=== PATIENT | female | born 1935 | race Caucasian/White ===

== ENCOUNTER 2017-08-28 20:59 | Inpatient (IN) | payer MEDICARE, BC ==
[~2017-08-28] VITALS: Ht 152.4 cm; Wt 54.7 kg
[2017-08-28] MEDS ORDERED: TYLENOL 8 HR PO (21:25)
[2017-08-28] MEDS ORDERED: LASIX 20MG TABL20 MG PO (21:26)
[2017-08-28] MEDS ORDERED: SYNTHROID0.2 MG/TAB PO (21:26)
[2017-08-28] MEDS ORDERED: ASPIRIN 32325 MG/TAB PO (21:27)
[2017-08-28] MEDS ORDERED: LIPITOR 80MG80 MG PO (21:27)
[2017-08-28] MEDS ORDERED: K-DUR20 MEQ PO (21:27)
[2017-08-28] MEDS ORDERED: CENTRUM SILVER1 TA2 PO (21:27)
[2017-08-28] MEDS ORDERED: COZAAR100 MG PO (21:28)
[2017-08-28] MEDS ORDERED: ZETIA 10MG TAB10 MG PO (21:28)
[2017-08-28] MEDS ORDERED: EPA FISH OIL1 SGL PO (21:29)
[2017-08-28] MEDS ORDERED: ZOLOFT 100MG100 MG PO (21:29)
[2017-08-28] MEDS ORDERED: PRILOSEC 20MG20 MG PO (21:29)
[2017-08-28 22:29] LABS: COLLECTION METHOD CATHETER
[2017-08-28 22:34] LABS: MUCOUS Present /lpf; PH 5 (5-8); SQUAMOUS EPITHELIAL 0-2 /hpf; URINE APPEARANCE Clear; URINE BACTERIA None Seen /hpf; URINE BILIRUBIN Negative (NEGATIVE); URINE BLOOD Negative (NEGATIVE); URINE COLOR Yellow; URINE GLUCOSE Negative (NEGATIVE); URINE KETONE Negative (NEGATIVE); URINE LEUKOCYTE ESTERASE Negative (NEGATIVE); URINE NITRATE Negative (NEGATIVE); URINE PROTEIN(semi-quant) Negative (NEGATIVE); URINE RBC 0-2 /hpf
[2017-08-28 23:05] LABS: BASO # 0.1 (0.0-0.2); BASO % 0.5 % (0.0-2.0); EOS # 0.4 (0.0-0.7); EOS % 2.4 % (0-4.0); GRAN # 13.5 (1.4-6.5); HEMATOCRIT 42.5 % (37.0-47.0); LYMPH # 2.5 (1.2-3.4); LYMPH % 14.3 % (20.0-51.0); MEAN CELL VOLUME 95 fl (80.0-100.0); MEAN CORPUSCULAR HEMOGLOBIN 31 pg (27.0-31.0); MEAN CORPUSCULAR HGB CONC 33 g/dl (33.0-37.0); MEAN PLATELET VOLUME 10.9 fl (7.4-10.4); MONO # 1.1 (0.1-0.6); MONO % 6.1 % (1.7-9.3); PLATELET COUNT 281 K/mm3 (130-400); RED BLOOD COUNT 4.49 M/mm3 (4.10-5.30); REDCELL DISTRIBUTION WIDTH-CV 14.3 % (11.5-14.5)
[2017-08-28 23:07] LABS: INR 0.9 (0.8-3.0); PROTHROMBIN TIME 10.3 SECONDS (9.7-12.8)
[2017-08-28 23:10] LABS: ALBUMIN 3.5 gm/dL (3.5-5.0); BILIRUBIN,TOTAL 0.6 mg/dL (0.0-1.0); CALCIUM 8.5 mg/dL (8.4-10.2); CREATININE, serum 1.08 mg/dL (0.52-1.25); POTASSIUM 4.2 mmol/L (3.4-5.0); TOTAL PROTEIN 7.4 gm/dL (6.4-8.2)
[2017-08-28 23:24] VITALS: BP 120/37; PULSE 105; TEMP 97.4
[2017-08-29] VITALS (11 sets, daily range): BP systolic 98–115; BP diastolic 41–87; PULSE 66–106; TEMP 97.5–98.4
[2017-08-29 06:52] LABS: BASO # 0.1 (0.0-0.2); BASO % 0.5 % (0.0-2.0); EOS # 0.1 (0.0-0.7); EOS % 0.8 % (0-4.0); GRAN # 10.4 (1.4-6.5); GRAN % 76.2 % (42.2-75.2); HEMATOCRIT 40.8 % (37.0-47.0); HEMOGLOBIN 12.9 g/dl (12.5-16.0); LYMPH # 2.1 (1.2-3.4); LYMPH % 15.7 % (20.0-51.0); MEAN CELL VOLUME 99 fl (80.0-100.0); MEAN CORPUSCULAR HEMOGLOBIN 31 pg (27.0-31.0); MEAN CORPUSCULAR HGB CONC 32 g/dl (33.0-37.0); MEAN PLATELET VOLUME 10.4 fl (7.4-10.4); MONO # 0.9 (0.1-0.6); MONO % 6.5 % (1.7-9.3); PLATELET COUNT 274 K/mm3 (130-400); RED BLOOD COUNT 4.12 M/mm3 (4.10-5.30); REDCELL DISTRIBUTION WIDTH-CV 14.3 % (11.5-14.5)
[2017-08-29 07:07] LABS: ALBUMIN 3.3 gm/dL (3.5-5.0); BILIRUBIN,TOTAL 0.4 mg/dL (0.0-1.0); CALCIUM 8.1 mg/dL (8.4-10.2); CREATININE, serum 1.23 mg/dL (0.52-1.25); POTASSIUM 4.8 mmol/L (3.4-5.0); TOTAL PROTEIN 6.8 gm/dL (6.4-8.2)
[2017-08-29] MEDS ORDERED: SYNTHROID0.075 MG/T PO (16:45)
[2017-08-30 01:51] VITALS: BP 103/47; PULSE 110; TEMP 97.7
[2017-08-30 05:28] VITALS: BP 97/47; PULSE 111; TEMP 98.3
[2017-08-30 06:34] LABS: BASO % 0.1 % (0.0-2.0); GRAN # 10.3 (1.4-6.5); GRAN % 87.1 % (42.2-75.2); LYMPH # 0.7 (1.2-3.4); LYMPH % 5.8 % (20.0-51.0); MEAN CELL VOLUME 97 fl (80.0-100.0); MEAN CORPUSCULAR HGB CONC 32 g/dl (33.0-37.0); MEAN PLATELET VOLUME 10.4 fl (7.4-10.4); MONO # 0.8 (0.1-0.6); MONO % 6.7 % (1.7-9.3); PLATELET COUNT 204 K/mm3 (130-400); RED BLOOD COUNT 3.43 M/mm3 (4.10-5.30); REDCELL DISTRIBUTION WIDTH-CV 14.2 % (11.5-14.5)
[2017-08-30 06:55] LABS: CALCIUM 8.4 mg/dL (8.4-10.2); CREATININE, serum 1.39 mg/dL (0.52-1.25); POTASSIUM 4.3 mmol/L (3.4-5.0)
[2017-08-30 06:56] LABS: HEMATOCRIT 33.1 % (37.0-47.0); HEMOGLOBIN 10.6 g/dl (12.5-16.0); MEAN CORPUSCULAR HEMOGLOBIN 31 pg (27.0-31.0)
[2017-08-30 13:37] VITALS: BP 104/44; PULSE 112; TEMP 98.3
[2017-08-30 15:33] VITALS: BP 103/60; PULSE 103; TEMP 97.8
[2017-08-30 18:00] VITALS: BP 108/49; PULSE 113; TEMP 97.8
[2017-08-30 22:11] VITALS: BP 119/59; PULSE 115; TEMP 97.8
[2017-08-31 01:16] VITALS: BP 118/48; PULSE 110; TEMP 98.6
[2017-08-31 05:34] VITALS: BP 93/50; PULSE 105; TEMP 98.2
[2017-08-31 06:41] LABS: BASO % 0.2 % (0.0-2.0); EOS # 0.2 (0.0-0.7); EOS % 1.6 % (0-4.0); GRAN # 6.5 (1.4-6.5); GRAN % 70.1 % (42.2-75.2); LYMPH # 1.6 (1.2-3.4); LYMPH % 17.4 % (20.0-51.0); MEAN CELL VOLUME 96 fl (80.0-100.0); MEAN CORPUSCULAR HGB CONC 32 g/dl (33.0-37.0); MEAN PLATELET VOLUME 10.3 fl (7.4-10.4); MONO % 10.4 % (1.7-9.3); PLATELET COUNT 215 K/mm3 (130-400); RED BLOOD COUNT 3.33 M/mm3 (4.10-5.30); REDCELL DISTRIBUTION WIDTH-CV 14.4 % (11.5-14.5)
[2017-08-31 06:46] LABS: HEMOGLOBIN 10.3 g/dl (12.5-16.0); MEAN CORPUSCULAR HEMOGLOBIN 31 pg (27.0-31.0)
[2017-08-31 07:03] LABS: CALCIUM 9.2 mg/dL (8.4-10.2); CREATININE, serum 1.37 mg/dL (0.52-1.25); POTASSIUM 4.4 mmol/L (3.4-5.0)
[2017-08-31] MEDS ORDERED: NICODERM C14 MG/PATC TD (07:35)
[2017-08-31] MEDS ORDERED: IPRATROPIUM BROM3 M1 IH ×2 (07:35)
[2017-08-31] MEDS ORDERED: ASPI325T6 PO (07:36)
[2017-08-31] MEDS ORDERED: NORCO 325 MG-51 TAB PO (07:37)
[2017-08-31] MEDS ORDERED: TYLENOL 325MG325 MG PO (07:37)
[2017-08-31] MEDS ORDERED: DULCOLAX S10 MG/SUPP RC (07:39)
[2017-08-31] MEDS ORDERED: SENOKOT S 50 MG1 TAB PO (07:39)
[2017-08-31] MEDS ORDERED: CITRACAL + D CA1 TAB PO (07:39)
[2017-08-31] MEDS ORDERED: MILK OF MA400 MG/5 M PO (07:40)
[2017-08-31] MEDS ORDERED: VITAMINC500CH PO (07:40)
[2017-08-31] MEDS ORDERED: INCRUSE EL62.5 MCG/A IH (08:41)
[2017-08-31] MEDS ORDERED: K-TAB20 PO (08:43)
[2017-08-31 09:28] VITALS: BP 99/51; PULSE 106; TEMP 97.8
== END 2017-08-31 12:22 | DRG 482 ==
LOC: COL.ER 20:59 → SURG 22:40
PROVIDERS: Emergency Medicine; Family Medicine; Nurse Practitioner Family; Orthopaedic Surgery
PROC: 0QS634Z Reposition Right Upper Femur with Internal Fixation Device, Percutaneous Approach (ICD-10-PCS; principal; 2017-08-29 12:00)
DX: S72.011A Unspecified intracapsular fracture of right femur, initial encounter for closed fracture (principal); Z66 Do not resuscitate; J42 Unspecified chronic bronchitis; I12.9 Hypertensive chronic kidney disease with stage 1 through stage 4 chronic kidney disease, or unspecified chronic kidney disease; N18.9 Chronic kidney disease, unspecified; W18.30XA Fall on same level, unspecified, initial encounter; I25.10 Atherosclerotic heart disease of native coronary artery without angina pectoris; Z95.1 Presence of aortocoronary bypass graft; F17.210 Nicotine dependence, cigarettes, uncomplicated
CPT/HCPCS: 99222-AI; 99232-AI; 99239; A9284; C1713; J0690; J1100; J2270; J2405; J2550; J2704; J3010; J7040; J7120

== ENCOUNTER 2017-08-31 11:43 | Inpatient (IN) | payer MEDICARE, BC ==
[~2017-08-31] VITALS: Ht 152.4 cm; Wt 57.3 kg
[~2017-08-31 11:43] MED LIST: ASPI325T6 PO; ASPIRIN 32325 MG/TAB PO; CENTRUM SILVER1 TA2 PO; CITRACAL + D CA1 TAB PO; COZAAR100 MG PO; DULCOLAX S10 MG/SUPP RC; EPA FISH OIL1 SGL PO; INCRUSE EL62.5 MCG/A IH; IPRATROPIUM BROM3 M1 IH; K-DUR20 MEQ PO; K-TAB20 PO; LASIX 20MG TABL20 MG PO; LIPITOR 80MG80 MG PO; MILK OF MA400 MG/5 M PO; NICODERM C14 MG/PATC TD; NORCO 325 MG-51 TAB PO; PRILOSEC 20MG20 MG PO; SENOKOT S 50 MG1 TAB PO; SYNTHROID0.075 MG/T PO; SYNTHROID0.2 MG/TAB PO; TYLENOL 325MG325 MG PO; TYLENOL 8 HR PO; VITAMINC500CH PO; ZETIA 10MG TAB10 MG PO; ZOLOFT 100MG100 MG PO
[2017-08-31 12:45] VITALS: BP 109/67; PULSE 97; TEMP 98.5
[2017-08-31 16:10] VITALS: BP 99/51; PULSE 70; TEMP 98.7
[2017-08-31 16:19] VITALS: BP 99/51; PULSE 70; TEMP 98.7
[2017-09-01 05:40] VITALS: BP 101/51; PULSE 98; TEMP 98.4
[2017-09-01 17:40] VITALS: BP 113/54; PULSE 110; TEMP 98.9
[2017-09-02 05:37] VITALS: BP 132/70; PULSE 68; TEMP 98.5
[2017-09-02 15:23] VITALS: BP 114/51; PULSE 100; TEMP 97.4
[2017-09-03 06:05] VITALS: BP 142/68; PULSE 98; TEMP 98.3
[2017-09-03 06:12] LABS: BASO % 0.4 % (0.0-2.0); EOS # 0.5 (0.0-0.7); EOS % 6.4 % (0-4.0); GRAN # 4.7 (1.4-6.5); GRAN % 59.7 % (42.2-75.2); LYMPH # 1.6 (1.2-3.4); LYMPH % 20.5 % (20.0-51.0); MEAN CELL VOLUME 97 fl (80.0-100.0); MEAN CORPUSCULAR HGB CONC 32 g/dl (33.0-37.0); MEAN PLATELET VOLUME 10.1 fl (7.4-10.4); MONO % 12.7 % (1.7-9.3); PLATELET COUNT 303 K/mm3 (130-400); RED BLOOD COUNT 3.28 M/mm3 (4.10-5.30); REDCELL DISTRIBUTION WIDTH-CV 14.4 % (11.5-14.5)
[2017-09-03 06:15] LABS: HEMATOCRIT 31.9 % (37.0-47.0); HEMOGLOBIN 10.2 g/dl (12.5-16.0); MEAN CORPUSCULAR HEMOGLOBIN 31 pg (27.0-31.0)
[2017-09-03 06:22] LABS: CALCIUM 8.7 mg/dL (8.4-10.2); CREATININE, serum 1.06 mg/dL (0.52-1.25); POTASSIUM 4.1 mmol/L (3.4-5.0)
[2017-09-03 15:27] VITALS: BP 136/69; PULSE 107; TEMP 98
[2017-09-04 04:37] VITALS: BP 132/65; PULSE 92; TEMP 97.6
[2017-09-04 15:33] VITALS: BP 133/56; PULSE 95; TEMP 98
[2017-09-05 05:59] VITALS: BP 112/68; PULSE 75; TEMP 98.4
[2017-09-05 16:27] VITALS: BP 119/48; PULSE 97; TEMP 97.4
[2017-09-06 06:50] VITALS: BP 133/62; PULSE 84; TEMP 97.4
[2017-09-06] MEDS ORDERED: SYNTHROID0.075 MG/T PO (08:37)
[2017-09-06] MEDS ORDERED: NORCO 325 MG-51 TAB PO (08:38)
[2017-09-06] MEDS ORDERED: COMBIRESP IH (08:38)
[2017-09-06] MEDS ORDERED: PROAIR HFA0.09 MG/AC IH (08:38)
[2017-09-06 15:57] VITALS: BP 106/54; PULSE 96; TEMP 98.1
== END 2017-09-06 17:30 | disposition home health service (06) | DRG 561 ==
PROVIDERS: Internal Medicine
DX: S72.011D Unspecified intracapsular fracture of right femur, subsequent encounter for closed fracture with routine healing (principal); Z66 Do not resuscitate; W18.30XD Fall on same level, unspecified, subsequent encounter; I12.9 Hypertensive chronic kidney disease with stage 1 through stage 4 chronic kidney disease, or unspecified chronic kidney disease; N18.9 Chronic kidney disease, unspecified; I25.10 Atherosclerotic heart disease of native coronary artery without angina pectoris; Z95.1 Presence of aortocoronary bypass graft; F17.210 Nicotine dependence, cigarettes, uncomplicated; J44.9 Chronic obstructive pulmonary disease, unspecified
CPT/HCPCS: 99222-AI; 99232-AI; 99239

== ENCOUNTER 2017-12-29 20:48 | Emergency (ER) | payer MEDICARE, BC ==
[~2017-12-29] VITALS: Ht 154.9 cm; Wt 56.8 kg
[~2017-12-29 20:48] MED LIST changes: +COMBIRESP IH; +PROAIR HFA0.09 MG/AC IH
[2017-12-29 20:58] VITALS: BP 128/74; TEMP 97.9
[2017-12-29 22:19] VITALS: PULSE 100
== END 2017-12-29 22:19 | disposition home or self-care (01) ==
LOC: COL.ER 20:48
DX: S51.811A Laceration without foreign body of right forearm, initial encounter (principal); I25.10 Atherosclerotic heart disease of native coronary artery without angina pectoris; I10 Essential (primary) hypertension; F17.210 Nicotine dependence, cigarettes, uncomplicated; F32.9 Major depressive disorder, single episode, unspecified; Z90.49 Acquired absence of other specified parts of digestive tract; Z90.89 Acquired absence of other organs; Z23 Encounter for immunization; Z88.0 Allergy status to penicillin; Z79.82 Long term (current) use of aspirin; W26.8XXA Contact with other sharp object(s), not elsewhere classified, initial encounter; Y92.009 Unspecified place in unspecified non-institutional (private) residence as the place of occurrence of the external cause

== ENCOUNTER 2019-10-26 19:51 | Emergency (ER) | payer MEDICARE, BC ==
[~2019-10-26] VITALS: Ht 157.5 cm; Wt 50.0 kg
[2019-10-26 20:08] VITALS: BP 163/83; PULSE 98; TEMP 98.8
[2019-10-26] MEDS ORDERED: PROZAC40 MG PO (21:02)
[2019-10-26] MEDS ORDERED: DOXYCYCLINE HY100 MG PO (23:23)
== END 2019-10-26 23:39 | disposition home or self-care (01) ==
LOC: COL.ER 19:51
DX: S06.0X9A Concussion with loss of consciousness of unspecified duration, initial encounter (principal); S02.40CA Maxillary fracture, right side, initial encounter for closed fracture; S60.222A Contusion of left hand, initial encounter; S80.212A Abrasion, left knee, initial encounter; I25.10 Atherosclerotic heart disease of native coronary artery without angina pectoris; E78.5 Hyperlipidemia, unspecified; K21.9 Gastro-esophageal reflux disease without esophagitis; I12.9 Hypertensive chronic kidney disease with stage 1 through stage 4 chronic kidney disease, or unspecified chronic kidney disease; N18.9 Chronic kidney disease, unspecified; F17.210 Nicotine dependence, cigarettes, uncomplicated; Z79.82 Long term (current) use of aspirin; Z87.81 Personal history of (healed) traumatic fracture; Z95.5 Presence of coronary angioplasty implant and graft; W01.0XXA Fall on same level from slipping, tripping and stumbling without subsequent striking against object, initial encounter; Y92.009 Unspecified place in unspecified non-institutional (private) residence as the place of occurrence of the external cause

== ENCOUNTER 2021-06-04 13:38 | Emergency (ER) | payer MEDICARE, BC ==
[~2021-06-04] VITALS: Ht 152.4 cm; Wt 43.6 kg
[~2021-06-04 13:38] MED LIST changes: +DOXYCYCLINE HY100 MG PO; +PROZAC40 MG PO
[2021-06-04 13:57] VITALS: TEMP 97.8
[2021-06-04 14:51] LABS: BASO # 0.1 K/mm3 (0.0-0.2); BASO % 0.5 % (0.0-2.0); EOS # 0.1 K/mm3 (0.0-0.7); EOS % 0.5 % (0.0-4.0); GRAN # 7.5 K/mm3 (1.4-6.5); GRAN % 74.3 % (42.2-75.2); HEMOGLOBIN 13.5 g/dl (12.5-16.0); LYMPH # 1.7 K/mm3 (1.2-3.4); LYMPH % 16.7 % (20.0-51.0); MEAN CELL VOLUME 99 fl (80.0-100.0); MEAN CORPUSCULAR HEMOGLOBIN 32 pg (27-31); MEAN CORPUSCULAR HGB CONC 32 g/dl (33.0-37.0); MEAN PLATELET VOLUME 9.9 fl (7.4-10.4); MONO # 0.8 K/mm3 (0.1-0.6); MONO % 7.7 % (1.7-9.3); PLATELET COUNT 310 K/mm3 (130-400); RED BLOOD COUNT 4.23 M/mm3 (4.10-5.30); REDCELL DISTRIBUTION WIDTH-CV 12.1 % (11.5-14.5)
[2021-06-04 15:01] LABS: COLLECTION METHOD CATHETER
[2021-06-04 15:02] LABS: BILIRUBIN,TOTAL 0.7 mg/dL (0.2-1.2); CALCIUM 9.8 mg/dL (8.4-10.2); CREATININE, serum 1.27 mg/dL (0.57-1.11); POTASSIUM 4.3 mmol/L (3.5-4.5); TOTAL PROTEIN 7.4 gm/dL (6.2-8.1)
[2021-06-04 15:09] LABS: PH 5 (5-8); SQUAMOUS EPITHELIAL 0-2 /hpf (0-10); URINE APPEARANCE Clear (CLEAR/HAZY); URINE BACTERIA None Seen /hpf (NONE SEEN); URINE BILIRUBIN Negative (NEGATIVE); URINE BLOOD Negative (NEGATIVE); URINE COLOR Yellow (YELLOW); URINE GLUCOSE Negative (NEGATIVE); URINE KETONE Negative (NEGATIVE); URINE LEUKOCYTE ESTERASE Negative (NEGATIVE); URINE NITRATE Negative (NEGATIVE); URINE PROTEIN(semi-quant) Negative (NEGATIVE); URINE RBC 0-2 /hpf (0-2); URINE UROBILINOGEN Negative (NEGATIVE)
[2021-06-04 18:49] VITALS: BP 141/83; PULSE 77
== END 2021-06-04 19:03 | disposition home or self-care (01) ==
LOC: COL.ER 13:38
PROVIDERS: Emergency Medicine
DX: R33.9 Retention of urine, unspecified (principal); K56.41 Fecal impaction; R19.09 Other intra-abdominal and pelvic swelling, mass and lump; R91.8 Other nonspecific abnormal finding of lung field; I25.10 Atherosclerotic heart disease of native coronary artery without angina pectoris; I12.9 Hypertensive chronic kidney disease with stage 1 through stage 4 chronic kidney disease, or unspecified chronic kidney disease; E78.5 Hyperlipidemia, unspecified; N18.9 Chronic kidney disease, unspecified; Z88.0 Allergy status to penicillin; Z79.82 Long term (current) use of aspirin; Z79.899 Other long term (current) drug therapy
CPT/HCPCS: A4314; Q9967

== ENCOUNTER → 2021-06-21 | Outpatient (CLI) | payer MEDICARE, BC | LOC: COL.RAD 13:26 | DX: R19.00 Intra-abdominal and pelvic swelling, mass and lump, unspecified site (principal); R91.8 Other nonspecific abnormal finding of lung field ==

== ENCOUNTER 2021-08-11 06:29 | Day surgery (SDC) | payer MEDICARE, BC ==
[~2021-08-11] VITALS: Ht 152.4 cm; Wt 47.3 kg
[2021-08-11 07:57] VITALS: BP 126/54; PULSE 75; TEMP 97.4
[2021-08-11] MEDS ORDERED: OMEGA-3 1000 MG1 CAP PO (08:20)
[2021-08-11] MEDS ORDERED: ASPI325T6 PO (08:20)
[2021-08-11] MEDS ORDERED: COZAAR100 MG PO (08:21)
[2021-08-11] MEDS ORDERED: ULTRAM 50MG TAB50 MG PO (08:22)
[2021-08-11] MEDS ORDERED: MEPROBAMATE PO (08:23)
[2021-08-11] MEDS ORDERED: VRAYLAR1.5 MG PO (08:24)
[2021-08-11] MEDS ORDERED: EUTHYROX75 MCG PO (08:25)
[2021-08-11] MEDS ORDERED: PRILOSEC 20MG20 MG PO (08:25)
[2021-08-11 09:40] VITALS: BP 120/57; PULSE 71
[2021-08-11 09:55] VITALS: BP 118/58; PULSE 74
[2021-08-11 10:10] VITALS: BP 136/67; PULSE 73
[2021-08-11 10:25] VITALS: BP 129/61; PULSE 71
== END 2021-08-11 11:01 | disposition home or self-care (01) ==
LOC: SDCO 06:29
DX: C34.31 Malignant neoplasm of lower lobe, right bronchus or lung (principal); C77.1 Secondary and unspecified malignant neoplasm of intrathoracic lymph nodes
CPT/HCPCS: C1788; J0690; J1644; J2370; J2704; J3010; J7120

== ENCOUNTER 2021-09-06 09:40 | Emergency (ER) | payer MEDICARE, BC ==
[~2021-09-06] VITALS: Ht 152.4 cm; Wt 47.3 kg
[~2021-09-06 09:40] MED LIST changes: +EUTHYROX75 MCG PO; +MEPROBAMATE PO; +OMEGA-3 1000 MG1 CAP PO; +ULTRAM 50MG TAB50 MG PO; +VRAYLAR1.5 MG PO
[2021-09-06 10:00] VITALS: TEMP 97.4
[2021-09-06 10:47] LABS: COLLECTION METHOD CLEAN CATCH
[2021-09-06 10:51] LABS: BASO % 0.4 % (0.0-2.0); EOS # 0.2 K/mm3 (0.0-0.7); EOS % 2.2 % (0.0-4.0); GRAN # 6.9 K/mm3 (1.4-6.5); GRAN % 76.5 % (42.2-75.2); HEMOGLOBIN 11.2 g/dl (12.5-16.0); LYMPH # 1.1 K/mm3 (1.2-3.4); LYMPH % 12.2 % (20.0-51.0); MEAN CELL VOLUME 98 fl (80.0-100.0); MEAN CORPUSCULAR HEMOGLOBIN 32 pg (27-31); MEAN CORPUSCULAR HGB CONC 32 g/dl (33.0-37.0); MEAN PLATELET VOLUME 10.7 fl (7.4-10.4); MONO # 0.7 K/mm3 (0.1-0.6); MONO % 7.7 % (1.7-9.3); PLATELET COUNT 261 K/mm3 (130-400); RED BLOOD COUNT 3.56 M/mm3 (4.10-5.30); REDCELL DISTRIBUTION WIDTH-CV 12.9 % (11.5-14.5)
[2021-09-06 10:54] LABS: HEMATOCRIT 34.7 % (37.0-47.0)
[2021-09-06 10:58] LABS: MUCOUS Present (NOT PRESENT); PH 5 (5-8); SQUAMOUS EPITHELIAL 0-2 /hpf (0-10); URINE APPEARANCE Clear (CLEAR/HAZY); URINE BACTERIA Rare /hpf (NONE SEEN); URINE BILIRUBIN Negative (NEGATIVE); URINE BLOOD Negative (NEGATIVE); URINE COLOR Yellow (YELLOW); URINE GLUCOSE Negative (NEGATIVE); URINE KETONE Negative (NEGATIVE); URINE LEUKOCYTE ESTERASE Negative (NEGATIVE); URINE NITRATE Negative (NEGATIVE); URINE PROTEIN(semi-quant) Negative (NEGATIVE); URINE RBC 0-2 /hpf (0-2); URINE UROBILINOGEN Negative (NEGATIVE)
[2021-09-06 11:19] LABS: ALBUMIN 3.1 gm/dL (3.4-4.8); BILIRUBIN,TOTAL 0.6 mg/dL (0.2-1.2); C-REACTIVE PROTEIN 2.89 mg/dL (0.00-0.50); CALCIUM 8.8 mg/dL (8.4-10.2); CREATININE, serum 1.42 mg/dL (0.57-1.11); POTASSIUM 4.6 mmol/L (3.5-4.5); TOTAL PROTEIN 6.2 gm/dL (6.2-8.1)
[2021-09-06 12:12] VITALS: BP 111/58; PULSE 89
== END 2021-09-06 12:13 | disposition home or self-care (01) ==
LOC: COL.ER 09:40
PROVIDERS: Family Medicine
DX: R33.9 Retention of urine, unspecified (principal); R10.30 Lower abdominal pain, unspecified; N32.89 Other specified disorders of bladder; Z90.49 Acquired absence of other specified parts of digestive tract
CPT/HCPCS: J2405; J7120